=== PATIENT | female | born 1965 | race Caucasian/White ===

== ENCOUNTER 2017-08-16 08:57 | Emergency (ER) | payer MEDICARE ==
[2017-08-16] MEDS ORDERED: Fentanyl 100 MCG/2 ML VIAL ONE (09:16)
[2017-08-16 09:30] LABS: #Basophils 0.1 thou/uL (0.0-0.2); #Eosinphils 0.2 thou/uL (0.0-0.7); #Lymphocytes 2.5 thou/uL (1.20-3.40); #Monocytes 0.7 thou/uL (0.11-0.59); %Basophils 0.9 % (0.0-1.0); %Eosinophils 1.7 % (0.0-10.0); %Lymphocytes 23.6 % (21.0-51.0); %Neutrophils 66.9 % (42.0-75.0); Hemoglobin 13.1 g/dL (12.0-16.0); Mean Corpuscular HGB CONC 31.9 g/dL (32.0-36.0); Mean Corpuscular Hemoglobin 27.5 pg (27.0-31.0); Mean Corpuscular Volume 86.2 fl (81.0-99.0); Mean Platelet Volume 6.4 fL (7.4-10.4); Platelet Count 353 thou/uL (130-400); RBC Distribution Width 11.8 % (11.5-14.5); Red Blood Cell (RBC) Count 4.75 mill/uL (4.20-5.40); White Blood Cell (WBC) Count 10.5 thou/uL (4.8-10.8)
[2017-08-16 09:37] LABS: INR-International Normal Ratio 0.9; PTT 31.4 SEC (22.9-36.1); Prothrombin Time 12.3 SEC (12.0-14.7)
[2017-08-16] MEDS ORDERED: Morphine 4 MG/ML Carpuject ONE (09:37)
[2017-08-16] MEDS ORDERED: Lidocaine 1% w/Epinephrine 1:100K 30 ML VIAL ONE (09:37)
[2017-08-16 09:46] LABS: ALT (SGPT) 16 U/L (8-55); AST (SGOT) 18 U/L (5-34); Albumin 4.1 g/dL (3.5-5.0); Alkaline Phosphatase 115 U/L (40-150); Anion Gap 19 mmol/L (10-20); BUN (Urea Nitrogen) 13 mg/dL (9.8-20.1); Bilirubin, Total 0.3 mg/dL (0.2-1.2); Calc. Creatinine Clearance 0 mL/min (70-130); Calcium 9.4 mg/dL (7.8-10.44); Carbon Dioxide 23 mmol/L (22-29); Chloride 103 mmol/L (98-107); Estimated GFR-MDRD 90; Globulin 3.4 g/dL (2.4-3.5); Glucose 124 mg/dL (70-105); Protein, Total 7.5 g/dL (6.0-8.3); Sodium 141 mmol/L (136-145)
[2017-08-16] MEDS ORDERED: Lorazepam 2 MG/ML VIAL ONE (09:49)
[2017-08-16] MEDS ORDERED: cefTRIAXone\\ROCEPHIN 1 GM VIAL ONE (09:49)
== END 2017-08-16 12:12 | disposition home or self-care (01) ==
LOC: BURERS 08:57
DX: S51.811A Laceration without foreign body of right forearm, initial encounter (principal); I25.2 Old myocardial infarction; Z79.899 Other long term (current) drug therapy; Z79.82 Long term (current) use of aspirin; W55.82XA Struck by other mammals, initial encounter
CPT/HCPCS: 12035; 80053; 85025; 85610; 85730; 96374; 96375; J0696; J2001; J2060; J2270; J3010